=== PATIENT | male | born 1975 | race Caucasian/White ===

== ENCOUNTER 2017-11-06 18:12 | Observation (INO) | payer MEDICAID, OTHER ==
[2017-11-06] MEDS ORDERED: Sodium Chloride 0.9% 1,000 ML IV STA (19:21)
--- NOTE | 2017-11-06 19:28 | ED PDOC ---
HPI: SOB/CHF/COPD Chief Complaint (Provider): "I've been feeling congested and I've been breathing from my mouth" History Per: Patient Onset/Duration Of Symptoms: Days Current Symptoms Are (Timing): Still Present Initiating Event: Emotionaly Upset Current Respiratory Medications: None Pain Scale Rating Of: 0 Associated Symptoms: Anxiety. denies: Fever, Chills, Chest Pain, Bloody Cough, Leg/Calf Pain, Ankle/Leg Swelling, Dizziness, Light-headedness <Hayley Batista - Last Filed: 11/06/17 20:44> <Avtar Stanford - Last Filed: 11/06/17 21:41> Time Seen by Provider: 11/06/17 18:29 Chief Complaint (Nursing): Shortness Of Breath Additional Complaint(s): 42 y/o male w/ no significant pmhx presents to the ED w/ "chest congestion." He states that he went to [facility] 4 days ago because he has been congested and breathing through his mouth. He was told he has elevated blood pressure, and he says this caused him a lot of anxiety. He states that he has multiple episodes of feeling nervous when someone checks his blood pressure or talks to him about his health. He states that he has "heart burn" sometimes; he denies chest pain, shortness of breath, n/v/d/c. He states that he drinks more than 10 liters of water per day and this helps "calm down." (Hayley Batista) Supervising Attending Note <Hayley Batista - Last Filed: 11/06/17 20:44> - Supervising Attending Note The Documented history was done by the: Physician Ventilation Equipment Tender The documented physical exam was done by the: Physician Ventilation Equipment Tender The documented procedures were done by the: Physician Ventilation Equipment Tender - Attestation: I have personally seen and examined this patient.: Yes I have fully participated in the care of the patient.: Yes I have reviewed all pertinent clinical information, including history, physical exam and plan: Yes <Avtar Stanford - Last Filed: 11/06/17 21:41> - Notes: Notes:: Nasal congestion; burning in chest. (Avtar Stanford) Past Medical History Reviewed: Historical Data, Nursing Documentation, Vital Signs - Medical History PMH: Anxiety Denies: Chronic Kidney Disease - Surgical History Surgical History: No Surg Hx - Family History Family History: States: Unknown Family Hx - Social History Current smoker - smoking cessation education provided: No Ex-Smoker (has not smoked in the last 12 months): No Alcohol: Social Drugs: Denies - Immunization History Hx Tetanus Toxoid Vaccination: No Hx Influenza Vaccination: No Hx Pneumococcal Vaccination: No <Hayley Batista - Last Filed: 11/06/17 20:44> <Avtar Stanford - Last Filed: 11/06/17 21:41> Vital Signs: Last Vital Signs Temp 97.6 F 11/06/17 19:13 Pulse 75 11/06/17 19:13 Resp 18 11/06/17 19:13 BP 140/90 11/06/17 19:13 Pulse Ox 100 11/06/17 20:52 - Allergies Allergies/Adverse Reactions: Allergies Allergy/AdvReac Type Severity Reaction Status Date / Time Penicillins Allergy RASH Verified 11/06/17 18:28 tetracycline Allergy RASH Verified 11/06/17 18:28 Review of Systems Constitutional: Negative for: Fever, Weakness Eyes: Negative for: Vision Change ENT: Positive for: Nose Congestion Cardiovascular: Negative for: Chest Pain, Palpitations, Orthopnea, Light Headedness Respiratory: Positive for: Cough, Sputum. Negative for: Shortness of Breath Gastrointestinal: Negative for: Nausea, Vomiting, Abdominal Pain, Diarrhea, Constipation Genitourinary Male: Negative for: Dysuria Musculoskeletal: Negative for: Neck Pain, Shoulder Pain, Arm Pain, Back Pain Neurological: Negative for: Weakness, Numbness, Confusion Psych: Positive for: Anxiety <Hayley Batista - Last Filed: 11/06/17 20:44> Physical Exam - Reviewed Nursing Documentation Reviewed: Yes Vital Signs Reviewed: Yes - Physical Exam Appears: Positive for: Non-toxic, No Acute Distress Head Exam: Positive for: ATRAUMATIC Skin: Positive for: Normal Color, Warm, Dry. Negative for: Diaphoresis Eye Exam: Positive for: Normal appearance, PERRL ENT: Positive for: Nasal Congestion. Negative for: Pharyngeal Erythema Cardiovascular/Chest: Positive for: Regular Rate, Rhythm, Chest Non Tender. Negative for: Murmur, Bradycardia, Tachycardia Respiratory: Positive for: Normal Breath Sounds. Negative for: Wheezing, Respiratory Distress Gastrointestinal/Abdominal: Positive for: Normal Exam, Bowel Sounds, Soft. Negative for: Tenderness Back: Positive for: Normal Inspection. Negative for: L CVA Tenderness, R CVA Tenderness Extremity: Negative for: Tenderness, Pedal Edema, Calf Tenderness Neurologic/Psych: Positive for: Alert, Oriented, Mood/Affect (anxious) <Hayley Batista - Last Filed: 11/06/17 20:44> - Physical Exam ENT: Positive for: Nasal Congestion Cardiovascular/Chest: Positive for: Regular Rate, Rhythm, Chest Non Tender Respiratory: Positive for: Normal Breath Sounds <Avtar Stanford - Last Filed: 11/06/17 21:41> - Laboratory Results Result Diagrams: 11/06/17 19:31 11/06/17 19:31 - ECG ECG Rhythm: Positive for: Normal QRS, Normal ST Segment, Sinus Rhythm O2 Sat by Pulse Oximetry: 100 - Progress Re-evaluation Time: 19:46 Condition: Unchanged <Hayley Batista - Last Filed: 11/06/17 20:44> - Laboratory Results Result Diagrams: 11/06/17 19:31 11/06/17 19:31 Interpretation Of Abn Labs: 119 na, 84 chloride, serum osm 244, urine osm 54 - ECG ECG: Positive for: Interpreted By Me, Viewed By Me ECG Rhythm: Positive for: Normal QRS, Normal ST Segment, Sinus Rhythm Pulse Ox Interpretation: Normal - Radiology X-Ray: Interpreted by Me, Viewed By Me X-Ray Interpretation: No Acute Disease <Avtar Stanford - Last Filed: 11/06/17 21:41> - Progress ED Course And Treament: Assessment: 42 y/o male w/ c/o chest congestion and anxiety Plan: r/o cardiac etiology vs anxiety EKG normal sinus rhythm Troponin Accucheck 107 CBC/CMP Lipase CXR Famotidine 20 mg IVP (Hayley Batista) 2136: Pt. stable. AAOx3. Pain free. Will need admit to monitor levels. Pt. aware. Dr. Bundy will admit. (Avtar Stanford) Disposition - Patient ED Disposition Is Patient to be Admitted: Yes - Disposition Disposition: Transfer of Care Disposition Time: 20:48 <Hayley Batista - Last Filed: 11/06/17 20:44> - Patient ED Disposition Is Patient to be Admitted: Yes - Disposition Disposition Time: 20:00 - Pt Status Changed To: Hospital Disposition Of: Observation - POA Present On Arrival: None <Avtar Stanford - Last Filed: 11/06/17 21:41> - Clinical Impression Clinical Impression: Hyponatremia, Polydipsia - Disposition Condition: STABLE
[2017-11-06 19:36] LABS: BASO # 0.1 K/uL (0.0-0.2); BASO % 0.8 % (0.0-2.0); EOS % 0.4 % (0.0-4.0); LYMPH % 17.7 % (20.0-40.0); MEAN CELL VOLUME 77.8 fl (80.0-94.0); MEAN CORPUSCULAR HEMOGLOBIN 26.7 pg (27.0-31.0); MEAN CORPUSCULAR HGB CONC 34.2 g/dL (33.0-37.0); MEAN PLATELET VOLUME 8.4 fl (7.2-11.7); MONO % 8.7 % (0.0-10.0); NEUT % 72.4 % (50.0-75.0); RBC 4.88 Mil/uL (4.40-5.90); RED CELL DISTRIBUTION WIDTH 13.8 % (11.5-14.5); WHITE BLOOD COUNT 11.1 K/uL (4.8-10.8)
[2017-11-06 20:00] LABS: ALB/GLOB RATIO 1.6 (1.0-2.1); ALBUMIN 4.5 g/dL (3.5-5.0); ALT/SGPT 43 U/L (21-72); AST/SGOT 40 U/L (17-59); BLOOD UREA NITROGEN 6 mg/dl (9-20); CALCIUM 8.9 mg/dL (8.4-10.2); GFR NON-AFRICAN AMERICAN > 60; LIPASE 65 U/L (23-300)
[2017-11-06 20:44] LABS: URINE BACTERIA RARE (<OCC); URINE BILIRUBIN NEGATIVE (NEGATIVE); URINE BLOOD SMALL (NEGATIVE); URINE CLARITY CLEAR (Clear); URINE COLOR COLORLESS (YELLOW); URINE GLUCOSE (UA) NEG (Normal); URINE LEUKOCYTE ESTERASE NEG Leu/uL (Negative); URINE PROTEIN NEGATIVE (NEGATIVE); URINE UROBILINOGEN 0.2-1.0 mg/dL (0.2-1.0)
--- NOTE | 2017-11-06 22:42 | CP.PCM.HP ---
History of Present Illness - History of Present Illness History of Present Illness: 42 yo ,m, PMhx/o anxiety presents to Ed c/o chest congestion and nasal congestion stated 2 weeks ago associated with dry throat. He reports living in a hot apartment and has been breathing through his mouth to alleviate sore dryness and drinking approx. 10 liter of water to alleviate symptoms. Patient reports hx/o anxiety started at the age of 20, specifically when he gets sick and also gets anxious when he hears about medical symptoms. He recently went to [facility] 4 days ago for URI symptoms and he was told he has elevated blood pressure, and he says this caused him a lot of anxiety. Reports heartburn also started today. He denies fever, chest pain, SOB, sick contact, n,v,d, headache, dizziness, gait imbalance, depression, visual, auditory hallucination, SI,HI. On evaluation in ED patient AAox3, Na: 119, asymptomatic. PMD: none PMHX: Anxiety Allergies: Penicillin, Tetracycline. Rash reaction. Meds: Medhavati (OTC for depression) PSurghx: none PShx: ETOH social occs, Denies rect drugs, cig Present on Admission - Present on Admission Any Indicators Present on Admission: No History of DVT/PE: No History of Uncontrolled Diabetes: No Urinary Catheter: No Decubitus Ulcer Present: No Review of Systems - Review of Systems All systems: reviewed and no additional remarkable complaints except - EENT Nose/Mouth/Throat: Nasal Congestion. absent: Nasal Discharge - Respiratory Respiratory: Chest Congestion Past Patient History - Past Social History Alcohol: Social Drugs: Denies - CARDIAC Hx Cardiac Disorders: No - PULMONARY Hx Respiratory Disorders: No - NEUROLOGICAL Hx Neurological Disorder: No - HEENT Hx HEENT Problems: No - RENAL Hx Chronic Kidney Disease: No - ENDOCRINE/METABOLIC Hx Endocrine Disorders: No - HEMATOLOGICAL/ONCOLOGICAL Hx Blood Disorders: No - INTEGUMENTARY Hx Dermatological Problems: No - MUSCULOSKELETAL/RHEUMATOLOGICAL Hx Musculoskeletal Disorders: No - GASTROINTESTINAL Hx Gastrointestinal Disorders: No - GENITOURINARY/GYNECOLOGICAL Hx Genitourinary Disorders: No - PSYCHIATRIC Hx Anxiety: Yes - SURGICAL HISTORY Hx Surgeries: No - ANESTHESIA Hx Anesthesia: No Meds Allergies/Adverse Reactions: Allergies Allergy/AdvReac Type Severity Reaction Status Date / Time Penicillins Allergy RASH Verified 11/06/17 18:28 tetracycline Allergy RASH Verified 11/06/17 18:28 Physical Exam - Constitutional Appears: Non-toxic, No Acute Distress - Head Exam Head Exam: ATRAUMATIC, NORMOCEPHALIC - Eye Exam Eye Exam: Normal appearance - ENT Exam ENT Exam: Mucous Membranes Moist, Normal Oropharynx - Neck Exam Neck exam: Positive for: Normal Inspection - Respiratory Exam Respiratory Exam: Clear to Auscultation Bilateral. absent: Rales, Rhonchi, Wheezes - Cardiovascular Exam Cardiovascular Exam: REGULAR RHYTHM, +S1, +S2 - GI/Abdominal Exam GI & Abdominal Exam: Normal Bowel Sounds, Soft. absent: Rebound, Tenderness - Extremities Exam Extremities exam: Positive for: normal inspection. Negative for: pedal edema - Back Exam Back exam: NORMAL INSPECTION. absent: CVA tenderness (L), CVA tenderness (R) - Neurological Exam Neurological exam: Alert, Oriented x3, Reflexes Normal - Psychiatric Exam Psychiatric exam: Normal Affect, Normal Mood - Skin Skin Exam: Intact Results - Vital Signs Recent Vital Signs: Last Vital Signs Temp 97.6 F 11/06/17 19:13 Pulse 75 11/06/17 19:13 Resp 18 11/06/17 19:13 BP 140/90 11/06/17 19:13 Pulse Ox 100 11/06/17 20:52 - Labs Result Diagrams: 11/06/17 19:31 11/06/17 19:31 Labs: Laboratory Results - last 24 hr 11/06/17 11/06/17 11/06/17 18:59 19:31 19:31 WBC 11.1 H RBC 4.88 Hgb 13.0 Hct 38.0 MCV 77.8 L MCH 26.7 L MCHC 34.2 RDW 13.8 Plt Count 367 MPV 8.4 Neut % (Auto) 72.4 Lymph % (Auto) 17.7 L Marshall % (Auto) 8.7 Eos % (Auto) 0.4 Baso % (Auto) 0.8 Neut # (Auto) 8.0 H Lymph # (Auto) 2.0 Marshall # (Auto) 1.0 H Eos # (Auto) 0.0 Baso # (Auto) 0.1 Sodium 119 L* Potassium 3.8 Chloride 84 L Carbon Dioxide 22 Anion Gap 17 BUN 6 L Creatinine 0.6 L Est GFR ( Amer) > 60 Est GFR (Non-Af Amer) > 60 POC Glucose (mg/dL) 107 Random Glucose 109 Serum Osmolality Calcium 8.9 Total Bilirubin 0.7 AST 40 ALT 43 Alkaline Phosphatase 89 Troponin I < 0.0120 Total Protein 7.3 Albumin 4.5 Globulin 2.8 Albumin/Globulin Ratio 1.6 Lipase 65 Urine Color Urine Clarity Urine pH Ur Specific [place] Urine Protein Urine Glucose (UA) Urine Ketones Urine Blood Urine Nitrate Urine Bilirubin Urine Urobilinogen Ur Leukocyte Esterase Urine RBC (Auto) Urine Microscopic WBC Urine Bacteria Urine Osmolality 11/06/17 11/06/17 11/06/17 20:20 20:33 20:33 WBC RBC Hgb Hct MCV MCH MCHC RDW Plt Count MPV Neut % (Auto) Lymph % (Auto) Marshall % (Auto) Eos % (Auto) Baso % (Auto) Neut # (Auto) Lymph # (Auto) Marshall # (Auto) Eos # (Auto) Baso # (Auto) Sodium Potassium Chloride Carbon Dioxide Anion Gap BUN Creatinine Est GFR ( Amer) Est GFR (Non-Af Amer) POC Glucose (mg/dL) Random Glucose Serum Osmolality 244 L Calcium Total Bilirubin AST ALT Alkaline Phosphatase Troponin I Total Protein Albumin Globulin Albumin/Globulin Ratio Lipase Urine Color Colorless Urine Clarity Clear Urine pH 7.0 Ur Specific [place] < 1.005 Urine Protein Negative Urine Glucose (UA) Neg Urine Ketones Negative Urine Blood Small Urine Nitrate Negative Urine Bilirubin Negative Urine Urobilinogen 0.2-1.0 Ur Leukocyte Esterase Neg Urine RBC (Auto) < 1 Urine Microscopic WBC < 1 Urine Bacteria Rare Urine Osmolality 54 L Assessment & Plan - Assessment and Plan (Free Text) Plan: 42 yo ,m, PMhx/o anxiety admitted for Asymptomatic severe 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 Na 119. 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 -f/u TSH, free T4, cortisol AM, urine lytes 2) Anxiety -Ativan 1m PO given -c/w Ativan PRN 3) DVT Prophylaxis -Lovenox 40 mg sc daily
[2017-11-07 06:51] LABS: BLOOD UREA NITROGEN 6 mg/dl (9-20); CALCIUM 10.2 mg/dL (8.4-10.2); GFR NON-AFRICAN AMERICAN > 60
--- NOTE | 2017-11-07 08:06 | RAD ---
Date of service: 11/06/2017 HISTORY: burning COMPARISON: No prior. TECHNIQUE: Chest PA and lateral FINDINGS: LUNGS: No active pulmonary disease. PLEURA: No significant pleural effusion identified. No pneumothorax apparent. CARDIOVASCULAR: Normal. OSSEOUS STRUCTURES: No significant abnormalities. VISUALIZED UPPER ABDOMEN: Normal. OTHER FINDINGS: None. IMPRESSION: No active disease.
--- NOTE | 2017-11-07 09:25 | CARD ---
APPROVED REPORT Date of service: 11/06/2017 EKG Measurement Heart [id number] <Conclusion> Normal sinus rhythm Normal ECG
[2017-11-07] MEDS: Enoxaparin 40 mg Syringe SC SCH (10:19)
--- NOTE | 2017-11-07 10:23 | CT ---
Date of service: 11/07/2017 PROCEDURE: CT HEAD WITHOUT CONTRAST. HISTORY: Hyponatremia COMPARISON: None available. TECHNIQUE: Axial computed tomography images were obtained through the head/brain without intravenous contrast. Radiation dose: Total exam DLP = mGy-cm. This CT exam was performed using one or more of the following dose reduction techniques: Automated exposure control, adjustment of the mA and/or kV according to patient size, and/or use of iterative reconstruction technique. FINDINGS: HEMORRHAGE: No intracranial hemorrhage. BRAIN: No mass effect or edema. No atrophy or chronic microvascular ischemic changes. VENTRICLES: Unremarkable. No hydrocephalus. CALVARIUM: Unremarkable. PARANASAL SINUSES: Unremarkable as visualized. No significant inflammatory changes. MASTOID AIR CELLS: Unremarkable as visualized. No inflammatory changes. OTHER FINDINGS: None. IMPRESSION: Normal CT of the Head.
--- NOTE | 2017-11-07 12:58 | CP.PCM.CON ---
History of Present Illness - History of Present Illness History of Present Illness: pt is a 42 yo ,male, no previous history of formal psychiatric diagnosis or treatment presents to Ed c/o chest congestion and nasal congestion stated 2 weeks ago associated with dry throat. pt on evaluation reported having anxiety symptoms, started that he feels anxious whenever he has any medical concern , also feels very anxious when he is faced with any situation where any family member is sick or he is faced with a situation that reminds him of pt explained his anxiety symptoms to be edginess feeling tight chest, increased worry and feeling keyed up pt denied symptoms of depression denied manic or psychotic symptoms , denied substance use , denied any current S/HI Past Patient History - Past Medical History & Family History Past Medical History?: Yes - Past Social History Smoking Status: Never Smoked - CARDIAC Hx Cardiac Disorders: No - PULMONARY Hx Respiratory Disorders: No - NEUROLOGICAL Hx Neurological Disorder: No - HEENT Hx HEENT Problems: No - RENAL Hx Chronic Kidney Disease: No - ENDOCRINE/METABOLIC Hx Endocrine Disorders: No - HEMATOLOGICAL/ONCOLOGICAL Hx Blood Disorders: No - INTEGUMENTARY Hx Dermatological Problems: No - MUSCULOSKELETAL/RHEUMATOLOGICAL Hx Musculoskeletal Disorders: No Hx Falls: No - GASTROINTESTINAL Hx Gastrointestinal Disorders: No - GENITOURINARY/GYNECOLOGICAL Hx Genitourinary Disorders: No - PSYCHIATRIC Hx Psychophysiologic Disorder: Yes Hx Anxiety: Yes Hx Substance Use: No - SURGICAL HISTORY Hx Surgeries: No - ANESTHESIA Hx Anesthesia: No Meds Allergies/Adverse Reactions: Allergies Allergy/AdvReac Type Severity Reaction Status Date / Time Penicillins Allergy RASH Verified 11/06/17 18:28 tetracycline Allergy RASH Verified 11/06/17 18:28 - Medications Medications: Current Medications Acetaminophen (Tylenol 325mg Tab) 650 mg PO Q6 PRN PRN Reason: Pain, Mild (1-3) Acetaminophen (Tylenol 325mg Tab) 650 mg PO Q6 PRN PRN Reason: Fever >100.4 F Enoxaparin Sodium (Lovenox) 40 mg SC DAILY AILEEN PRN Reason: Protocol Last Admin: 11/07/17 10:19 Dose: 40 mg Dextrose (Dextrose 5% In Water 1000 Ml) 1,000 mls @ 50 mls/hr IV .Q20H AILEEN Stop: 11/07/17 15:00 Last Admin: 11/07/17 10:14 Dose: 50 mls/hr Physical Exam - Psychiatric Exam Additional comments: PT SEEN IN BED , CALM COOPERATIVE GOOD E[employer] CONTACT, SPEECH NORMAL , THOUGHT FORM COHERENT, ANXIOUS MOOD AND AFFECT, DENIED ANY CURRENT SUICIDAL OR HOMICIDAL IDEATION, DENIED PERCEPTUAL DISTURBANCES, ALERT AWAKE OX3 Results - Vital Signs Recent Vital Signs: Last Vital Signs Temp 98.8 F 11/07/17 12:00 Pulse 102 H 11/07/17 12:00 Resp 20 11/07/17 12:00 BP 142/89 11/07/17 12:00 Pulse Ox 95 11/07/17 12:00 - Labs Result Diagrams: 11/06/17 19:31 11/07/17 05:00 Labs: Laboratory Results - last 24 hr 11/06/17 11/06/17 11/06/17 18:59 19:31 19:31 WBC 11.1 H RBC 4.88 Hgb 13.0 Hct 38.0 MCV 77.8 L MCH 26.7 L MCHC 34.2 RDW 13.8 Plt Count 367 MPV 8.4 Neut % (Auto) 72.4 Lymph % (Auto) 17.7 L [place] % (Auto) 8.7 Eos % (Auto) 0.4 Baso % (Auto) 0.8 Neut # (Auto) 8.0 H Lymph # (Auto) 2.0 [place] # (Auto) 1.0 H Eos # (Auto) 0.0 Baso # (Auto) 0.1 Sodium 119 L* Potassium 3.8 Chloride 84 L Carbon Dioxide 22 Anion Gap 17 BUN 6 L Creatinine 0.6 L Est GFR ( Amer) > 60 Est GFR (Non-Af Amer) > 60 POC Glucose (mg/dL) 107 Random Glucose 109 Serum Osmolality Calcium 8.9 Total Bilirubin 0.7 AST 40 ALT 43 Alkaline Phosphatase 89 Troponin I < 0.0120 Total Protein 7.3 Albumin 4.5 Globulin 2.8 Albumin/Globulin Ratio 1.6 Lipase 65 Free T4 TSH 3rd Generation Urine Color Urine Clarity Urine pH Ur Specific [place] Urine Protein Urine Glucose (UA) Urine Ketones Urine Blood Urine Nitrate Urine Bilirubin Urine Urobilinogen Ur Leukocyte Esterase Urine RBC (Auto) Urine Microscopic WBC Urine Bacteria Urine Osmolality Ur Random Sodium Ur Random Potassium 11/06/17 11/06/17 11/06/17 20:20 20:33 20:33 WBC RBC Hgb Hct MCV MCH MCHC RDW Plt Count MPV Neut % (Auto) Lymph % (Auto) [place] % (Auto) Eos % (Auto) Baso % (Auto) Neut # (Auto) Lymph # (Auto) [place] # (Auto) Eos # (Auto) Baso # (Auto) Sodium Potassium Chloride Carbon Dioxide Anion Gap BUN Creatinine Est GFR ( Amer) Est GFR (Non-Af Amer) POC Glucose (mg/dL) Random Glucose Serum Osmolality 244 L Calcium Total Bilirubin AST ALT Alkaline Phosphatase Troponin I Total Protein Albumin Globulin Albumin/Globulin Ratio Lipase Free T4 TSH 3rd Generation Urine Color Colorless Urine Clarity Clear Urine pH 7.0 Ur Specific [place] < 1.005 Urine Protein Negative Urine Glucose (UA) Neg Urine Ketones Negative Urine Blood Small Urine Nitrate Negative Urine Bilirubin Negative Urine Urobilinogen 0.2-1.0 Ur Leukocyte Esterase Neg Urine RBC (Auto) < 1 Urine Microscopic WBC < 1 Urine Bacteria Rare Urine Osmolality 54 L Ur Random Sodium Ur Random Potassium 11/06/17 11/07/17 11/07/17 23:26 05:00 05:00 WBC RBC Hgb Hct MCV MCH MCHC RDW Plt Count MPV Neut % (Auto) Lymph % (Auto) [place] % (Auto) Eos % (Auto) Baso % (Auto) Neut # (Auto) Lymph # (Auto) [place] # (Auto) Eos # (Auto) Baso # (Auto) Sodium 134 Potassium 4.0 Chloride 95 L Carbon Dioxide 26 Anion Gap 17 BUN 6 L Creatinine 0.8 Est GFR ( Amer) > 60 Est GFR (Non-Af Amer) > 60 POC Glucose (mg/dL) Random Glucose 127 H Serum Osmolality Calcium 10.2 Total Bilirubin AST ALT Alkaline Phosphatase Troponin I Total Protein Albumin Globulin Albumin/Globulin Ratio Lipase Free T4 1.30 TSH 3rd Generation 1.68 Urine Color Urine Clarity Urine pH Ur Specific [place] Urine Protein Urine Glucose (UA) Urine Ketones Urine Blood Urine Nitrate Urine Bilirubin Urine Urobilinogen Ur Leukocyte Esterase Urine RBC (Auto) Urine Microscopic WBC Urine Bacteria Urine Osmolality Ur Random Sodium 13 Ur Random Potassium 3.0 11/07/17 11/07/17 10:25 10:25 WBC RBC Hgb Hct MCV MCH MCHC RDW Plt Count MPV Neut % (Auto) Lymph % (Auto) [place] % (Auto) Eos % (Auto) Baso % (Auto) Neut # (Auto) Lymph # (Auto) [place] # (Auto) Eos # (Auto) Baso # (Auto) Sodium Potassium Chloride Carbon Dioxide Anion Gap BUN Creatinine Est GFR ( Amer) Est GFR (Non-Af Amer) POC Glucose (mg/dL) Random Glucose Serum Osmolality Calcium Total Bilirubin AST ALT Alkaline Phosphatase Troponin I Total Protein Albumin Globulin Albumin/Globulin Ratio Lipase Free T4 1.21 TSH 3rd Generation 1.32 Urine Color Urine Clarity Urine pH Ur Specific [place] Urine Protein Urine Glucose (UA) Urine Ketones Urine Blood Urine Nitrate Urine Bilirubin Urine Urobilinogen Ur Leukocyte Esterase Urine RBC (Auto) Urine Microscopic WBC Urine Bacteria Urine Osmolality Ur Random Sodium Ur Random Potassium Assessment & Plan - Assessment and Plan (Free Text) Assessment: GNERALIZED ANXIETY DISORDER Plan: recommend starting lexapro 5mg qhs recommend that forensic social worker would refer pt on discharge to [facility] outpatient psychiatric services for therapy and follow up
--- NOTE | 2017-11-07 14:08 | CP.PCM.PN ---
<Sultan Kalina - Last Filed: 11/07/17 14:06> Subjective - Date & Time of Evaluation Date of Evaluation: 11/07/17 Time of Evaluation: 09:20 - Subjective Subjective: Patient seen and examined this morning. No acute overnight events. Pt was on fluid restriction last night. Pt is AAOX 3. No acute complaints. Denies headache, dizziness, chest pain, dyspnea or blurry vision. Objective - Vital Signs/Intake and Output Vital Signs (last 24 hours): Temp Pulse Resp BP Pulse Ox 98.8 F 102 H 20 142/89 95 11/07/17 12:00 11/07/17 12:00 11/07/17 12:00 11/07/17 12:00 11/07/17 12:00 - Medications Medications: Current Medications Acetaminophen (Tylenol 325mg Tab) 650 mg PO Q6 PRN PRN Reason: Pain, Mild (1-3) Acetaminophen (Tylenol 325mg Tab) 650 mg PO Q6 PRN PRN Reason: Fever >100.4 F Enoxaparin Sodium (Lovenox) 40 mg SC DAILY AILEEN PRN Reason: Protocol Last Admin: 11/07/17 10:19 Dose: 40 mg Escitalopram Oxalate (Lexapro) 5 mg PO HS AILEEN Dextrose (Dextrose 5% In Water 1000 Ml) 1,000 mls @ 50 mls/hr IV .Q20H AILEEN Stop: 11/07/17 15:00 Last Admin: 11/07/17 10:14 Dose: 50 mls/hr - Labs Labs: 11/06/17 19:31 11/07/17 05:00 - Additional Findings Additional findings: - Constitutional Appears: Non-toxic, No Acute Distress - Head Exam Head Exam: NORMOCEPHALIC - Eye Exam Eye Exam: Normal appearance - ENT Exam ENT Exam: Mucous Membranes Moist, - Neck Exam Neck exam: Positive for: Normal Inspection - Respiratory Exam Respiratory Exam: Clear to Auscultation Bilateral. absent: Rales, Rhonchi, Wheezes - Cardiovascular Exam Cardiovascular Exam: REGULAR RHYTHM, +S1, +S2 - GI/Abdominal Exam GI & Abdominal Exam: Normal Bowel Sounds, Soft. absent: Rebound, Tenderness - Extremities Exam Extremities exam: Positive for: normal inspection. Negative for: pedal edema - Back Exam Back exam: NORMAL INSPECTION. 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 Na 119. Reports URI symptoms but Physical exam totally normal ENT. This AM, serum Na is 134. Pt is AA0X3, denies headache, dizziness or blurry vision. 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 -This AM, Na 134. -Nephrology consult appreciated -TSH:1.32 f/u free T4, cortisol AM -urine Na 13 and K 3 -f/u head CT, BMP 2) Anxiety -Psychiatry consult appreciated -Start lexapro 5 mg po qhs -f/u outpatient psychiatry 3) DVT Prophylaxis -Lovenox 40 mg sc daily <Nisreen Gustafson - Last Filed: 11/07/17 16:27> Objective - Vital Signs/Intake and Output Vital Signs (last 24 hours): Temp Pulse Resp BP Pulse Ox 98.8 F 102 H 20 142/89 95 11/07/17 12:00 11/07/17 12:00 11/07/17 12:00 11/07/17 12:00 11/07/17 12:00 - Medications Medications: Current Medications Acetaminophen (Tylenol 325mg Tab) 650 mg PO Q6 PRN PRN Reason: Pain, Mild (1-3) Acetaminophen (Tylenol 325mg Tab) 650 mg PO Q6 PRN PRN Reason: Fever >100.4 F Enoxaparin Sodium (Lovenox) 40 mg SC DAILY AILEEN PRN Reason: Protocol Last Admin: 11/07/17 10:19 Dose: 40 mg Escitalopram Oxalate (Lexapro) 5 mg PO HS AILEEN - Labs Labs: 11/06/17 19:31 11/07/17 05:00 Attending/Attestation - Attestation I have personally seen and examined this patient.: Yes I have fully participated in the care of the patient.: Yes I have reviewed all pertinent clinical information, including history, physical exam and plan: Yes Notes (Text): 11/07/17 16:27 Seen, examined, discussed with resident Dr. Gilman. Agree with findings and plan as above. Likely for discharge tomorrow, will discuss again with Dr. Rodriguez.
[2017-11-07 16:51] LABS: BLOOD UREA NITROGEN 9 mg/dl (9-20); CALCIUM 9.9 mg/dL (8.4-10.2); GFR NON-AFRICAN AMERICAN > 60
--- NOTE | 2017-11-07 20:39 | CP.PCM.CON ---
History of Present Illness - History of Present Illness History of Present Illness: renal consult note 42 years old with, PMhx/o anxiety presents to Ed c/o chest congestion and nasal congestion stated 2 weeks ago associated with dry throat. He reports living in a hot apartment and has been breathing through his mouth to alleviate sore dryness and drinking approx. he has been drinking close to 10 liter of water to alleviate symptoms. Patient reports hx/o anxiety started at the age of 20, specifically when he gets sick and also gets anxious when he hears about medical symptoms. no urinary symptoms on admission serum sodium 119 complete ros is negative except for those noted above meds rviewed pmh anxiety family hx negative exam vitals reviewd heent normal op moist no jvd ao times 3 nad s1s2 present no resp distress abd soft no edema no rash cooperative. anxious A&P: acute hyponatremia/anxiety hyponatremia sec to hypoosmolar, with low urine osmolarity sec to primary polydipsia he has rapidly corrected post fluid restriction recommend bmp q12 d5 drip to decrease the rate of correction recommend psy evaluation d/w hospitalist on team Past Patient History - Past Medical History & Family History Past Medical History?: Yes - Past Social History Smoking Status: Never Smoked - CARDIAC Hx Cardiac Disorders: No - PULMONARY Hx Respiratory Disorders: No - NEUROLOGICAL Hx Neurological Disorder: No - HEENT Hx HEENT Problems: No - RENAL Hx Chronic Kidney Disease: No - ENDOCRINE/METABOLIC Hx Endocrine Disorders: No - HEMATOLOGICAL/ONCOLOGICAL Hx Blood Disorders: No - INTEGUMENTARY Hx Dermatological Problems: No - MUSCULOSKELETAL/RHEUMATOLOGICAL Hx Musculoskeletal Disorders: No Hx Falls: No - GASTROINTESTINAL Hx Gastrointestinal Disorders: No - GENITOURINARY/GYNECOLOGICAL Hx Genitourinary Disorders: No - PSYCHIATRIC Hx Psychophysiologic Disorder: Yes Hx Anxiety: Yes Hx Substance Use: No - SURGICAL HISTORY Hx Surgeries: No - ANESTHESIA Hx Anesthesia: No Meds Allergies/Adverse Reactions: Allergies Allergy/AdvReac Type Severity Reaction Status Date / Time Penicillins Allergy RASH Verified 11/06/17 18:28 tetracycline Allergy RASH Verified 11/06/17 18:28 - Medications Medications: Current Medications Acetaminophen (Tylenol 325mg Tab) 650 mg PO Q6 PRN PRN Reason: Pain, Mild (1-3) Acetaminophen (Tylenol 325mg Tab) 650 mg PO Q6 PRN PRN Reason: Fever >100.4 F Enoxaparin Sodium (Lovenox) 40 mg SC DAILY [facility] PRN Reason: Protocol Last Admin: 11/07/17 10:19 Dose: 40 mg Escitalopram Oxalate (Lexapro) 5 mg PO HS [facility] Results - Vital Signs Recent Vital Signs: Last Vital Signs Temp 98.1 F 11/07/17 19:42 Pulse 79 11/07/17 19:42 Resp 17 11/07/17 19:42 BP 137/83 11/07/17 19:42 Pulse Ox 99 11/07/17 19:42 - Labs Result Diagrams: 11/06/17 19:31 11/07/17 16:10 Labs: Laboratory Results - last 24 hr 11/06/17 11/06/17 11/06/17 20:33 20:33 23:26 Sodium Potassium Chloride Carbon Dioxide Anion Gap BUN Creatinine Est GFR ( Amer) Est GFR (Non-Af Amer) Random Glucose Calcium Free T4 TSH 3rd Generation Cortisol AM Sample Urine Color Colorless Urine Clarity Clear Urine pH 7.0 Ur Specific [place] < 1.005 Urine Protein Negative Urine Glucose (UA) Neg Urine Ketones Negative Urine Blood Small Urine Nitrate Negative Urine Bilirubin Negative Urine Urobilinogen 0.2-1.0 Ur Leukocyte Esterase Neg Urine RBC (Auto) < 1 Urine Microscopic WBC < 1 Urine Bacteria Rare Urine Osmolality 54 L Ur Random Sodium 13 Ur Random Potassium 3.0 11/07/17 11/07/17 11/07/17 05:00 05:00 05:00 Sodium 134 Potassium 4.0 Chloride 95 L Carbon Dioxide 26 Anion Gap 17 BUN 6 L Creatinine 0.8 Est GFR ( Amer) > 60 Est GFR (Non-Af Amer) > 60 Random Glucose 127 H Calcium 10.2 Free T4 1.30 TSH 3rd Generation 1.68 Cortisol AM Sample 19.4 Urine Color Urine Clarity Urine pH Ur Specific [place] Urine Protein Urine Glucose (UA) Urine Ketones Urine Blood Urine Nitrate Urine Bilirubin Urine Urobilinogen Ur Leukocyte Esterase Urine RBC (Auto) Urine Microscopic WBC Urine Bacteria Urine Osmolality Ur Random Sodium Ur Random Potassium 11/07/17 11/07/17 11/07/17 10:25 10:25 16:10 Sodium 137 Potassium 4.0 Chloride 97 L Carbon Dioxide 29 Anion Gap 15 BUN 9 Creatinine 0.9 Est GFR ( Amer) > 60 Est GFR (Non-Af Amer) > 60 Random Glucose 98 Calcium 9.9 Free T4 1.21 TSH 3rd Generation 1.32 Cortisol AM Sample Urine Color Urine Clarity Urine pH Ur Specific [place] Urine Protein Urine Glucose (UA) Urine Ketones Urine Blood Urine Nitrate Urine Bilirubin Urine Urobilinogen Ur Leukocyte Esterase Urine RBC (Auto) Urine Microscopic WBC Urine Bacteria Urine Osmolality Ur Random Sodium Ur Random Potassium
[2017-11-08 00:30] VITALS: O2SAT 100
[2017-11-08 08:23] VITALS: PULSE 89; RESP 20
[2017-11-08] MEDS: Enoxaparin 40 mg Syringe SC SCH (09:29)
--- NOTE | 2017-11-08 10:05 | CP.PCM.DIS ---
<Amelia Li - Last Filed: 11/08/17 13:30> Provider - Provider Date of Admission: 11/06/17 21:41 Attending physician: Ryder Bundy MD Time Spent in preparation of Discharge (in minutes): 35 Diagnosis - Discharge Diagnosis (1) Hyponatremia Status: Acute Hospital Course - Lab Results Lab Results: Most Recent Lab Values WBC 11.1 K/uL (4.8-10.8) H 11/06/17 19:31 RBC 4.88 Mil/uL (4.40-5.90) 11/06/17 19:31 Hgb 13.0 g/dL (12.0-18.0) 11/06/17 19:31 Hct 38.0 % (35.0-51.0) 11/06/17 19:31 MCV 77.8 fl (80.0-94.0) L 11/06/17 19:31 MCH 26.7 pg (27.0-31.0) L 11/06/17 19:31 MCHC 34.2 g/dL (33.0-37.0) 11/06/17 19:31 RDW 13.8 % (11.5-14.5) 11/06/17 19:31 Plt Count 367 K/uL (130-400) 11/06/17 19:31 MPV 8.4 fl (7.2-11.7) 11/06/17 19:31 Neut % (Auto) 72.4 % (50.0-75.0) 11/06/17 19:31 Lymph % (Auto) 17.7 % (20.0-40.0) L 11/06/17 19:31 [place] % (Auto) 8.7 % (0.0-10.0) 11/06/17 19:31 Eos % (Auto) 0.4 % (0.0-4.0) 11/06/17 19:31 Baso % (Auto) 0.8 % (0.0-2.0) 11/06/17 19:31 Neut # (Auto) 8.0 K/uL (1.8-7.0) H 11/06/17 19:31 Lymph # (Auto) 2.0 K/uL (1.0-4.3) 11/06/17 19:31 [place] # (Auto) 1.0 K/uL (0.0-0.8) H 11/06/17 19:31 Eos # (Auto) 0.0 K/uL (0.0-0.7) 11/06/17 19:31 Baso # (Auto) 0.1 K/uL (0.0-0.2) 11/06/17 19:31 Sodium 137 mmol/l (132-148) 11/07/17 16:10 Potassium 4.0 MMOL/L (3.6-5.0) 11/07/17 16:10 Chloride 97 mmol/L (98-107) L 11/07/17 16:10 Carbon Dioxide 29 mmol/L (22-30) 11/07/17 16:10 Anion Gap 15 (10-20) 11/07/17 16:10 BUN 9 mg/dl (9-20) 11/07/17 16:10 Creatinine 0.9 mg/dl (0.8-1.5) 11/07/17 16:10 Est GFR ( Amer) > 60 11/07/17 16:10 Est GFR (Non-Af Amer) > 60 11/07/17 16:10 POC Glucose (mg/dL) 107 mg/dL (65-110) 11/06/17 18:59 Random Glucose 98 mg/dL (75-110) 11/07/17 16:10 Serum Osmolality 244 mosm/kg (272-300) L 11/06/17 20:20 Calcium 9.9 mg/dL (8.4-10.2) 11/07/17 16:10 Total Bilirubin 0.7 mg/dl (0.2-1.3) 11/06/17 19:31 AST 40 U/L (17-59) 11/06/17 19:31 ALT 43 U/L (21-72) 11/06/17 19:31 Alkaline Phosphatase 89 U/L (38-126) 11/06/17 19:31 Troponin I < 0.0120 ng/mL (0.00-0.120) 11/06/17 19:31 Total Protein 7.3 G/DL (6.3-8.2) 11/06/17 19:31 Albumin 4.5 g/dL (3.5-5.0) 11/06/17 19:31 Globulin 2.8 gm/dL (2.2-3.9) 11/06/17 19:31 Albumin/Globulin Ratio 1.6 (1.0-2.1) 11/06/17 19:31 Lipase 65 U/L (23-300) 11/06/17 19:31 Free T4 1.21 ng/dL (0.78-2.19) 11/07/17 10:25 TSH 3rd Generation 1.32 mIU/ML (0.46-4.68) 11/07/17 10:25 Cortisol AM Sample 19.4 ug/dL (4.46-22.7) 11/07/17 05:00 Urine Color Colorless (YELLOW) 11/06/17 20:33 Urine Clarity Clear (Clear) 11/06/17 20: Urine pH 7.0 (5.0-8.0) 11/06/17 20:33 Ur Specific [place] < 1.005 (1.003-1.030) 11/06/17 20:33 Urine Protein Negative mg/dL (NEGATIVE) 11/06/17 20:33 Urine Glucose (UA) Neg mg/dL (Normal) 11/06/17 20:33 Urine Ketones Negative mg/dL (NEGATIVE) 11/06/17 20:33 Urine Blood Small (NEGATIVE) 11/06/17 20:33 Urine Nitrate Negative (NEGATIVE) 11/06/17 20:33 Urine Bilirubin Negative (NEGATIVE) 11/06/17 20:33 Urine Urobilinogen 0.2-1.0 mg/dL (0.2-1.0) 11/06/17 20:33 Ur Leukocyte Esterase Neg Darrick/uL (Negative) 11/06/17 20:33 Urine RBC (Auto) < 1 /hpf (0-3) 11/06/17 20:33 Urine Microscopic WBC < 1 /hpf (0-5) 11/06/17 20:33 Urine Bacteria Rare (<OCC) 11/06/17 20:33 Urine Osmolality 54 mosm/kg (300-1000) L 11/06/17 20:33 Ur Random Sodium 13 meq/L 11/06/17 23:26 Ur Random Potassium 3.0 mmol/L 11/06/17 23:26 - Hospital Course Hospital Course: 42 yo male with PMhx of anxiety presented to ED c/o 2 week history of chest congestion and nasal congestion associated with dry throat. He reports living in a hot apartment and has been breathing through his mouth to alleviate sore dryness and drinking approximately 10 liters of water to alleviate symptoms. Patient reports hx/o anxiety which began at age 20, and is heightened when he gets sick or hears about medical conditions. He recently went to [facility] 4 days ago for URI symptoms and he was told he has elevated blood pressure which caused him a lot of anxiety. Reports heartburn also started when presenting to ED. He denied fever, chest pain, SOB, sick contact, n,v,d, headache, dizziness, gait imbalance, depression, visual, auditory hallucination, SI, HI. 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 Patient was admitted to floor and treated with restrict PO fluids (800 ml/day). Nephrology (Dr. Rodriguez) consulted and recommended psych consult, BMP Q12 and D5 drip to decrease the rate of correction. Psychology (Dr. Mercado) consulted and recommended Lexapro 5 mg po QHS. Hyponatremia rapidly corrected after fluid resuscitation (Na 136). Patient hemodynamically stable and cleared for discharge to home by medicine team. Patient was instructed to limit his free water intake to 8-10 8oz cups a day and follow-up with PMD and out patient psych. Discharge Exam - Head Exam Head Exam: ATRAUMATIC, NORMOCEPHALIC - Eye Exam Eye Exam: Normal appearance - ENT Exam ENT Exam: Mucous Membranes Moist - Respiratory Exam Respiratory Exam: Clear to PA & Lateral, NORMAL BREATHING PATTERN - Cardiovascular Exam Cardiovascular Exam: REGULAR RHYTHM - GI/Abdominal Exam GI & Abdominal Exam: Unremarkable - Extremities Exam Extremities exam: normal inspection - Neurological Exam Neurological exam: Alert, Oriented x3 - Psychiatric Exam Psychiatric exam: Normal Affect - Skin Skin Exam: Normal Color, Warm Discharge Plan - Discharge Medications Prescriptions: Escitalopram [Lexapro] 5 mg PO HS #30 tab - Follow Up Plan Condition: STABLE Disposition: HOME/ ROUTINE Referrals: [facility] [Provider Group] Phyllis Duvall MD [Medical Doctor] - <Nisreen Gustafson - Last Filed: 11/08/17 13:45> Provider - Provider Date of Admission: 11/06/17 21:41 Attending physician: Ryder Bundy MD Hospital Course - Lab Results Lab Results: Most Recent Lab Values WBC 11.1 K/uL (4.8-10.8) H 11/06/17 19:31 RBC 4.88 Mil/uL (4.40-5.90) 11/06/17 19:31 Hgb 13.0 g/dL (12.0-18.0) 11/06/17 19:31 Hct 38.0 % (35.0-51.0) 11/06/17 19:31 MCV 77.8 fl (80.0-94.0) L 11/06/17 19:31 MCH 26.7 pg (27.0-31.0) L 11/06/17 19:31 MCHC 34.2 g/dL (33.0-37.0) 11/06/17 19: RDW 13.8 % (11.5-14.5) 11/06/17 19:31 Plt Count 367 K/uL (130-400) 11/06/17 19:31 MPV 8.4 fl (7.2-11.7) 11/06/17 19:31 Neut % (Auto) 72.4 % (50.0-75.0) 11/06/17 19:31 Lymph % (Auto) 17.7 % (20.0-40.0) L 11/06/17 19: [place] % (Auto) 8.7 % (0.0-10.0) 11/06/17 19:31 Eos % (Auto) 0.4 % (0.0-4.0) 11/06/17 19: Baso % (Auto) 0.8 % (0.0-2.0) 11/06/17 19:31 Neut # (Auto) 8.0 K/uL (1.8-7.0) H 11/06/17 19:31 Lymph # (Auto) 2.0 K/uL (1.0-4.3) 11/06/17 19:31 [place] # (Auto) 1.0 K/uL (0.0-0.8) H 11/06/17 19:31 Eos # (Auto) 0.0 K/uL (0.0-0.7) 11/06/17 19:31 Baso # (Auto) 0.1 K/uL (0.0-0.2) 11/06/17 19:31 Sodium 136 mmol/l (132-148) 11/08/17 09:30 Potassium 3.8 MMOL/L (3.6-5.0) 11/08/17 09:30 Chloride 98 mmol/L (98-107) 11/08/17 09:30 Carbon Dioxide 26 mmol/L (22-30) 11/08/17 09:30 Anion Gap 16 (10-20) 11/08/17 09:30 BUN 11 mg/dl (9-20) 11/08/17 09:30 Creatinine 0.9 mg/dl (0.8-1.5) 11/08/17 09:30 Est GFR ( Amer) > 60 11/08/17 09:30 Est GFR (Non-Af Amer) > 60 11/08/17 09:30 POC Glucose (mg/dL) 107 mg/dL (65-110) 11/06/17 18:59 Random Glucose 167 mg/dL (75-110) H 11/08/17 09:30 Serum Osmolality 244 mosm/kg (272-300) L 11/06/17 20:20 Calcium 9.8 mg/dL (8.4-10.2) 11/08/17 09:30 Total Bilirubin 0.7 mg/dl (0.2-1.3) 11/06/17 19:31 AST 40 U/L (17-59) 11/06/17 19:31 ALT 43 U/L (21-72) 11/06/17 19:31 Alkaline Phosphatase 89 U/L (38-126) 11/06/17 19:31 Troponin I < 0.0120 ng/mL (0.00-0.120) 11/06/17 19:31 Total Protein 7.3 G/DL (6.3-8.2) 11/06/17 19:31 Albumin 4.5 g/dL (3.5-5.0) 11/06/17 19:31 Globulin 2.8 gm/dL (2.2-3.9) 11/06/17 19:31 Albumin/Globulin Ratio 1.6 (1.0-2.1) 11/06/17 19:31 Lipase 65 U/L (23-300) 11/06/17 19:31 Free T4 1.21 ng/dL (0.78-2.19) 11/07/17 10:25 TSH 3rd Generation 1.32 mIU/ML (0.46-4.68) 11/07/17 10:25 Cortisol AM Sample 19.4 ug/dL (4.46-22.7) 11/07/17 05:00 Urine Color Colorless (YELLOW) 11/06/17 20:33 Urine Clarity Clear (Clear) 11/06/17 20:33 Urine pH 7.0 (5.0-8.0) 11/06/17 20:33 Ur Specific [place] < 1.005 (1.003-1.030) 11/06/17 20:33 Urine Protein Negative mg/dL (NEGATIVE) 11/06/17 20:33 Urine Glucose (UA) Neg mg/dL (Normal) 11/06/17 20:33 Urine Ketones Negative mg/dL (NEGATIVE) 11/06/17 20:33 Urine Blood Small (NEGATIVE) 11/06/17 20:33 Urine Nitrate Negative (NEGATIVE) 11/06/17 20:33 Urine Bilirubin Negative (NEGATIVE) 11/06/17 20:33 Urine Urobilinogen 0.2-1.0 mg/dL (0.2-1.0) 11/06/17 20:33 Ur Leukocyte Esterase Neg Darrick/uL (Negative) 11/06/17 20:33 Urine RBC (Auto) < 1 /hpf (0-3) 11/06/17 20:33 Urine Microscopic WBC < 1 /hpf (0-5) 11/06/17 20:33 Urine Bacteria Rare (<OCC) 11/06/17 20:33 Urine Osmolality 54 mosm/kg (300-1000) L 11/06/17 20:33 Ur Random Sodium 13 meq/L 11/06/17 23:26 Ur Random Potassium 3.0 mmol/L 11/06/17 23:26 Attending/Attestation - Attestation I have personally seen and examined this patient.: Yes I have fully participated in the care of the patient.: Yes I have reviewed all pertinent clinical information, including history, physical exam and plan: Yes Notes (Text): 11/08/17 13:45 Seen examined and discussed with resident, agree with findings and plan as above.
[2017-11-08 10:38] LABS: BLOOD UREA NITROGEN 11 mg/dl (9-20); CALCIUM 9.8 mg/dL (8.4-10.2); GFR NON-AFRICAN AMERICAN > 60
[2017-11-08 12:12] VITALS: BP 137/93; TEMP 98
== END 2017-11-08 13:28 | disposition home or self-care (01) ==
LOC: H.ER 18:12 → H.ERHOLD 21:41 → H.TEL 23:21
PROVIDERS: ADMIT Internal Medicine; ATTEND Internal Medicine
DX: E87.1 Hypo-osmolality and hyponatremia (principal); F41.9 Anxiety disorder, unspecified; J44.9 Chronic obstructive pulmonary disease, unspecified; R63.1 Polydipsia; F45.9 Somatoform disorder, unspecified; R03.0 Elevated blood-pressure reading, without diagnosis of hypertension; R09.81 Nasal congestion; R09.89 Other specified symptoms and signs involving the circulatory and respiratory systems; R12 Heartburn
CPT/HCPCS: 36415; 70450; 71046; 80048; 80053; 81003; 82436; 82533; 82948; 83690; 83930; 83935; 84132; 84300; 84439; 84443; 84481; 84484; 85025; 93005; 96374; 99285; G0378; J1650; J7070

== ENCOUNTER 2017-11-28 18:22 | Emergency (ER) | payer MEDICAID, OTHER ==
--- NOTE | 2017-11-28 18:39 | ED PDOC ---
HPI: General Adult Time Seen by Provider: 11/28/17 18:35 Chief Complaint (Nursing): ENT Problem Chief Complaint (Provider): Dry Throat History Per: Patient History/Exam Limitations: no limitations Onset/Duration Of Symptoms: Days (x1 month) Current Symptoms Are (Timing): Still Present Additional Complaint(s): 42 year old male presents to the ED for evaluation of dry throat, nasal congestion, and intermittent weakness preventing him from work for the last month. Patient also notes secondary to the congestion, he has difficulty sleeping while laying on his back. He reports being seen here recently, having blood work showing low salt levels secondary to his increased water intake from his dry throat. Additionally, he states he had similar symptoms about ten years ago. Old chart reviewed and pt was admitted 11/06 for sodium of 119. PMD: none provided Past Medical History Reviewed: Historical Data, Nursing Documentation, Vital Signs Vital Signs: Last Vital Signs Temp 98.8 F 11/28/17 18:25 Pulse 128 H 11/28/17 18:25 Resp 20 11/28/17 18:25 BP 164/85 H 11/28/17 18:25 Pulse Ox 100 11/28/17 19:32 - Medical History PMH: Anxiety Denies: Chronic Kidney Disease - Surgical History Surgical History: No Surg Hx - Family History Family History: States: Unknown Family Hx - Social History Current smoker - smoking cessation education provided: No Alcohol: Social Drugs: Denies - Immunization History Hx Tetanus Toxoid Vaccination: No Hx Influenza Vaccination: No Hx Pneumococcal Vaccination: No - Home Medications Home Medications: Ambulatory Orders Medication Instructions Recorded Escitalopram [Lexapro] 5 mg PO HS #30 tab 11/08/17 Cetirizine HCl [Zyrtec] 10 mg PO DAILY #7 tab.rapdis 11/28/17 - Allergies Allergies/Adverse Reactions: Allergies Allergy/AdvReac Type Severity Reaction Status Date / Time Penicillins Allergy RASH Verified 11/28/17 18:25 tetracycline Allergy RASH Verified 11/28/17 18:25 Review of Systems ROS Statement: Except As Marked, All Systems Reviewed And Found Negative Constitutional: Positive for: Weakness ENT: Positive for: Nose Congestion, Other (dry throat) Physical Exam - Reviewed Nursing Documentation Reviewed: Yes Vital Signs Reviewed: Yes - Physical Exam Appears: Positive for: No Acute Distress Head Exam: Positive for: ATRAUMATIC, NORMOCEPHALIC Skin: Positive for: Normal Color. Negative for: Rash Eye Exam: Positive for: Normal appearance ENT: Positive for: Nasal Congestion. Negative for: Pharyngeal Erythema, Tonsillar Exudate, Tonsillar Swelling Neck: Positive for: Normal, Painless ROM, Supple Cardiovascular/Chest: Positive for: Tachycardia Respiratory: Positive for: Normal Breath Sounds. Negative for: Respiratory Distress Neurologic/Psych: Positive for: Alert, Oriented (x3) - Laboratory Results Result Diagrams: 11/28/17 18:58 11/28/17 18:58 - ECG O2 Sat by Pulse Oximetry: 100 (RA) Pulse Ox Interpretation: Normal - Progress ED Course And Treament: REPEAT PULSE RATE 93 D/W FAMILY [facility] RESIDENT WHO WILL EMAIL CLINIC TO OBTAIN EARLIER APPOINTMENT Medical Decision Making Medical Decision Making: Time: 1846 Initial Impression: dry throat, hx of hyponatremia Initial Plan: --CMP --Mg --Phosphorous --CBC with differential Scribe Attestation: Documented by Betty Patrick, acting as a scribe for Javier Bruner PA-C. Provider Scribe Attestation: All medical record entries made by the Scribe were at my direction and personally dictated by me. I have reviewed the chart and agree that the record accurately reflects my personal performance of the history, physical exam, medical decision making, and the department course for this patient. I have also personally directed, reviewed, and agree with the discharge instructions and disposition. Disposition - Clinical Impression Clinical Impression: Dry throat - Patient ED Disposition Is Patient to be Admitted: No - Disposition Disposition Time: 19:29 Condition: FAIR Additional Instructions: THE CLINIC WILL CALL YOU TO RESCHEDULE YOUR APPOINTMENT Prescriptions: Cetirizine HCl [Zyrtec] 10 mg PO DAILY #7 tab.rapdis Instructions: Seasonal Allergies in Adults Forms: [employer] (Persian)
[2017-11-28 19:06] LABS: BASO # 0.1 K/uL (0.0-0.2); BASO % 0.8 % (0.0-2.0); EOS # 0.1 K/uL (0.0-0.7); EOS % 1.2 % (0.0-4.0); LYMPH # 2.8 K/uL (1.0-4.3); LYMPH % 27.8 % (20.0-40.0); MEAN CELL VOLUME 79.9 fl (80.0-94.0); MEAN CORPUSCULAR HEMOGLOBIN 26.6 pg (27.0-31.0); MEAN CORPUSCULAR HGB CONC 33.3 g/dL (33.0-37.0); MEAN PLATELET VOLUME 8.7 fl (7.2-11.7); MONO # 0.8 K/uL (0.0-0.8); MONO % 8.4 % (0.0-10.0); NEUT # 6.2 K/uL (1.8-7.0); NEUT % 61.8 % (50.0-75.0); RBC 5.25 Mil/uL (4.40-5.90); RED CELL DISTRIBUTION WIDTH 14.4 % (11.5-14.5)
[2017-11-28 19:18] LABS: ALB/GLOB RATIO 1.3 (1.0-2.1); ALBUMIN 4.7 g/dL (3.5-5.0); ALT/SGPT 39 U/L (21-72); AST/SGOT 23 U/L (17-59); BLOOD UREA NITROGEN 13 mg/dl (9-20); CALCIUM 10.2 mg/dL (8.4-10.2); GFR NON-AFRICAN AMERICAN > 60
[2017-11-28 20:08] VITALS: BP 150/62; PULSE 93; RESP 16; TEMP 98; O2SAT 98
== END 2017-11-28 20:08 | disposition home or self-care (01) ==
LOC: H.ER 18:22
DX: J39.2 Other diseases of pharynx (principal); Z88.0 Allergy status to penicillin